=== PATIENT | female | born 1990 | race Caucasian/White ===

== ENCOUNTER 2017-04-09 20:56 | Emergency (ER) | payer MEDICAID ==
[2017-04-09 21:01] VITALS: BP 124/72; RESP 16; TEMP 98.6; O2SAT 98
[2017-04-09] MEDS ORDERED: LORazepam 1 MG TAB PO ONE (21:42)
[2017-04-09] MEDS ORDERED: CLINDAMYCIN 900 MG/DEXTROSE 50 ML IV ONE (21:42)
--- NOTE | 2017-04-09 22:14 | EDPHY ---
H & P Stated Complaint: Abscess in cheek that is draining HPI/ROS: Chief complaint: Dental infection History of present illness: This is a 26-year-old female who presents to the emergency department concerned she has a dental infection. She reports the onset of pain and swelling the left lower aspect of her jaw this morning. It was slowly worsening until she felt something rupture and noted pus in her mouth. She denies other associated signs or symptoms including no fevers, no difficulty opening or closing the mouth, no difficulty talking, swallowing or breathing. Review of systems: A 10 point review of systems was obtained and other than described above was negative - Personal History LMP (Females 10-55): Now Current Tetanus/Diphtheria Vaccine: Yes Current Tetanus Diphtheria and Acellular Pertussis (TDAP): Yes - Medical/Surgical History Hx Asthma: No Hx Chronic Respiratory Disease: No Hx Diabetes: No Hx Cardiac Disease: No Hx Renal Disease: No Hx Cirrhosis: No Hx Alcoholism: No Hx HIV/AIDS: No Hx Splenectomy or Spleen Trauma: No Other PMH: abscess on spine, left finger surgery - Social History Smoking Status: Current every day smoker - Physical Exam Exam: General Appearance: Alert and no distress. Eyes: Pupils equal and round no injection. ENT: Patient has edema lateral to the left inferior molar region. Pustular discharge noted in this region. There is no trismus. No hoarseness. No drooling. No stridor. Respiratory: Chest is non tender, lungs are clear to auscultation. Cardiac: regular rate and rhythm Musculoskeletal: Neck is supple and non tender. Extremities have full range of motion and are non tender. Skin: No rashes or lesions. Constitutional: Initial Vital Signs Temperature (C) 37.0 C 04/09/17 20:58 Heart Rate 92 04/09/17 20:58 Respiratory Rate 16 04/09/17 20:58 Blood Pressure 124/72 H 04/09/17 20:58 O2 Sat (%) 98 04/09/17 20:58 O2 Delivery Mode Room Air Allergies/Adverse Reactions: No Known Allergies Allergy (Unverified 04/09/17 21:01) Home Medications: Medication Instructions Recorded Clindamycin HCl [Clindamycin] 300 mg PO QID 7 Days cap 04/09/17 Medical Decision Making ED Course/Re-evaluation: Patient is discussed with my secondary supervising physician Dr. Demetrio Conn. Patient presents to the emergency depart with apparent periodontal abscess. It does appear to be spontaneously draining. She is started on IV clindamycin. She is nontoxic, I believe she is appropriate for outpatient management. She will be discharged home on a full course of clindamycin. She is asked to follow up with a dentist and referral information is given. Strict return precautions are given. Patient voiced understanding and agreement with plan. Differential Diagnosis: Included but not limited to abscess formation, cellulitis, osteomyelitis - Data Points Medications Given: Discontinued Medications Clindamycin Phosphate/Dextrose (Cleocin 900 Mg (Premix)) 50 mls @ 100 mls/hr IV EDNOW ONE PRN Reason: Protocol Stop: 04/09/17 22:11 Last Admin: 04/09/17 21:53 Dose: 50 mls Lorazepam (Ativan) 1 mg PO EDNOW ONE Stop: 04/09/17 21:43 Last Admin: 04/09/17 21:53 Dose: 1 mg Departure - Departure Disposition: Home, Routine, Self-Care Clinical Impression: Dental abscess Condition: Good Instructions: Dental Abscess (ED) Additional Instructions: Follow-up with a dentist in 1-2 days for recheck Take antibiotics as prescribed until finished even if feeling better I recommend you take a probiotic with the antibiotic If symptoms worsen or new symptoms develop return to the emergency room for recheck Referrals: NONE *PRIMARY CARE P,. [Primary Care Provider] - As per Instructions [facility] [Outside] - As per Instructions [facility] [Outside] - As per Instructions Dental [facility] [Outside] - As per Instructions Dental [facility] [Outside] - As per Instructions [facility] [Outside] - As per Instructions Prescriptions: Clindamycin HCl [Clindamycin] 300 mg PO QID 7 Days cap
[2017-04-09 22:46] VITALS: PULSE 84
== END 2017-04-09 22:45 | disposition home or self-care (01) ==
DX: K04.7 Periapical abscess without sinus (principal); F17.200 Nicotine dependence, unspecified, uncomplicated
CPT/HCPCS: 96374

== ENCOUNTER 2018-08-29 14:37 | Emergency (ER) | payer MEDICAID | END 2018-08-29 16:55 | disposition home or self-care (01) ==